=== PATIENT | female | born 1950 | race Caucasian/White ===

== ENCOUNTER 2019-04-20 17:52 | Emergency (ER) | payer SELFPAY ==
[~2019-04-20] VITALS: Ht 152.4 cm; Wt 54.5 kg
[2019-04-20 18:29] VITALS: Ht 152.4 cm; Wt 54.5 kg
[2019-04-20] MEDS ORDERED: VOLTAREN25 MG PO (20:19)
[2019-04-20] MEDS ORDERED: BACLOFEN10 MG PO (20:19)
[2019-04-20 20:43] VITALS: BP 181/80
== END 2019-04-20 20:44 | disposition home or self-care (01) ==
LOC: D.ER 17:52
DX: M79.10 Myalgia, unspecified site (principal); M54.5 Low back pain; V89.2XXA Person injured in unspecified motor-vehicle accident, traffic, initial encounter; I10 Essential (primary) hypertension